=== PATIENT | male | born 1990 | race Hispanic/Latino ===

== ENCOUNTER 2017-05-13 17:01 | Emergency (ER) | payer OTHER, BC ==
[~2017-05-13] VITALS: Ht 177.8 cm; Wt 119.0 kg
[2017-05-13 18:51] LABS: HEMATOCRIT 38.9 % (38.0-50.0); MCH 26.5 PG (29.0-34.0); MCHC 32.6 G/DL (30.0-36.0); PLATELET COUNT 307 K/uL (156-360); RBC DIS.WIDTH-CV 14.3 % (11.8-14.6); RBC DIS.WIDTH-SD 42.6 % (39-53); WHITE BLOOD COUNT 26.2 K/uL (4.1-10.2)
[2017-05-13 19:14] LABS: CHLORIDE 97 mEq/L (99-109); POTASSIUM 3.5 mEq/L (3.7-5.4); SODIUM 132 mEq/L (136-147)
[2017-05-13 19:16] LABS: GLUCOSE 108 mg/dL (70-99)
[2017-05-13 19:17] LABS: ANION GAP 13 MEQ/L (2-14)
[2017-05-13 19:18] LABS: TOTAL BILIRUBIN 0.8 mg/dL (0.0-1.0)
[2017-05-13 19:19] LABS: ALKALINE PHOSPHATASE 48 IU/L (3-129)
[2017-05-13 19:20] LABS: GFR ESTIMATE (CALCULATED) > 59 mL/min/
[2017-05-13 19:21] LABS: UREA NITROGEN (BUN) 10 mg/dL (9-23)
[2017-05-13 19:46] LABS: ADD MIUA? YES; BILIRUBIN NEGATIVE; BLOOD SMALL; COLOR YELLOW ((YELLOW)); GLUCOSE (STRIP) NEGATIVE; KETONES NEGATIVE; LEUKOCYTES MODERATE; NITRITE NEGATIVE; PROTEIN (STRIP) NEGATIVE; SPECIFIC GRAVITY 1.005 (1.000-1.030); UROBILINOGEN 0.2 MG/DL (0.2-1.0)
[2017-05-13 20:06] LABS: RED BLOOD CELLS 0-5 /HPF (0-5)
[2017-05-13 20:07] LABS: BACTERIA 1+ /HPF; CASTS NONE SEEN /LPF; CRYSTALS NONE SEEN; EPITHELIAL CELLS RARE /HPF; MUCUS RARE /LPF; UCUL ADDED? NO
[2017-05-13] MEDS ORDERED: MOTRIN800 MG PO (21:34)
[2017-05-13] MEDS ORDERED: KEFLEX500 MG PO (21:34)
[2017-05-13 22:07] VITALS: BP 120/68
== END 2017-05-13 22:09 | disposition home or self-care (01) ==
LOC: EME 17:01
PROVIDERS: Nurse Practitioner Family
DX: N39.0 Urinary tract infection, site not specified (principal); R50.9 Fever, unspecified; D72.829 Elevated white blood cell count, unspecified
CPT/HCPCS: 71020; 80053; 81003; 83605; 85027; 87040; 87077; 87086; 87186; 87651 90; 99281; 99284